=== PATIENT | male | born 2000 | race Caucasian/White ===

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

== ENCOUNTER → 2020-04-09 | Outpatient (CLI) | payer OTHER ==
[2020-04-09 17:51] LABS: HEMATOCRIT 40.1 % (42.0-52.0); HEMOGLOBIN 14.2 g/dl (13.5-17.5); MEAN CORPUSCULAR HEMOGLOBIN 30.1 pg (27.0-33.0); MEAN CORPUSCULAR HGB CONC 35.4 g/dl (32.0-36.5); PLATELET COUNT, AUTOMATED 345 10^3/uL (150-450); RED BLOOD COUNT 4.72 10^6/uL (4.30-6.10); WHITE BLOOD COUNT 9.8 10^3/uL (4.0-10.0)
[2020-04-09 18:09] LABS: HEMOGLOBIN A1c 4.7 %
[2020-04-09 18:26] LABS: ALBUMIN 4.1 GM/DL (3.2-5.2); ALT/SGPT 23 U/L (12-78); BILIRUBIN,TOTAL 0.4 MG/DL (0.2-1.0); BLOOD UREA NITROGEN 12 MG/DL (7-18); CALCIUM LEVEL 9.3 MG/DL (8.5-10.1); CARBON DIOXIDE LEVEL 26 MEQ/L (21-32); CHLORIDE LEVEL 104 MEQ/L (98-107); CHOLESTEROL LEVEL 191 MG/DL (<200); CHOLESTEROL RISK RATIO 6.161 (<5); CREATININE FOR GFR 0.84 MG/DL (0.70-1.30); FREE THYROXINE INDEX 3.1 % (1.4-3.8); GLUCOSE, FASTING 103 MG/DL (70-100); HDL CHOLESTEROL 31 MG/DL (>40); NON-HDL-C 160 MG/DL; POTASSIUM SERUM 4.1 MEQ/L (3.5-5.1); SODIUM LEVEL 138 MEQ/L (136-145); T UPTAKE 31 % (33-40); THYROID STIMULATING HORMONE 0.924 uIU/ML (0.463-3.98); THYROXINE (T4) 9.9 UG/DL (6.0-11.6); TOTAL 25(OH) VITAMIN D 7.2 NG/ML (30.0-100.0); TOTAL PROTEIN 7.5 GM/DL (6.4-8.2); TRIGLYCERIDES LEVEL 464 MG/DL (<150)
== END ==
LOC: M LAB 16:40
PROVIDERS: ATTEND Psychiatry & Neurology Child & Adolescent Psychiatry
DX: F31.9 Bipolar disorder, unspecified (principal)

== ENCOUNTER → 2020-12-06 | Outpatient (CLI) | payer OTHER ==
[2020-12-06 18:19] LABS: BLOOD UREA NITROGEN 13 MG/DL (7-18); CALCIUM LEVEL 9.3 MG/DL (8.5-10.1); CARBON DIOXIDE LEVEL 32 MEQ/L (21-32); CHLORIDE LEVEL 105 MEQ/L (98-107); CHOLESTEROL LEVEL 243 MG/DL (<200); CHOLESTEROL RISK RATIO 8.379 (<5); GLUCOSE, FASTING 90 MG/DL (70-100); HDL CHOLESTEROL 29 MG/DL (>40); NON-HDL-C 214 MG/DL; POTASSIUM SERUM 3.9 MEQ/L (3.5-5.1); SODIUM LEVEL 140 MEQ/L (136-145); TRIGLYCERIDES LEVEL 827 MG/DL (<150)
== END ==
LOC: M LAB 16:30
PROVIDERS: ATTEND Family Medicine
DX: F64.9 Gender identity disorder, unspecified (principal)

== ENCOUNTER 2022-06-21 19:20 | Emergency (ER) | payer OTHER ==
[~2022-06-21] VITALS: Ht 175.3 cm; Wt 134.1 kg
[~2022-06-21 19:20] MED LIST changes: +ALBU2.5V10 INH; -ALBU83IN INH
[2022-06-21 19:21] VITALS: BP 133/84
[2022-06-21] MEDS ORDERED: FINA5TAB2 PO (19:32)
[2022-06-21] MEDS ORDERED: LAMO100T3 PO (19:32)
[2022-06-21] MEDS ORDERED: ESCI5SOL3 PO (19:32)
[2022-06-21] MEDS ORDERED: ESTR1TAB PO (19:32)
[2022-06-21] MEDS ORDERED: ANUSOL HC CREAM 30GM TOP STA (20:48)
[2022-06-21] MEDS ORDERED: ANUS2.5C2 TOP (20:59)
== END 2022-06-21 21:06 | disposition home or self-care (01) ==
LOC: M ED 19:20
DX: K64.4 Residual hemorrhoidal skin tags (principal)

== ENCOUNTER 2023-12-24 00:38 | Emergency (ER) | payer OTHER ==
[~2023-12-24] VITALS: Ht 175.3 cm; Wt 133.6 kg
[~2023-12-24 00:38] MED LIST changes: +ANUS2.5C2 TOP; +ESCI5SOL3 PO; +ESTR1TAB PO; +FINA5TAB2 PO; +LAMO100T3 PO
[2023-12-24] MEDS ORDERED: ALBU6.7H6 INH (00:45)
[2023-12-24] MEDS: predniSONE 20 MG TAB PO ONE (01:53)
[2023-12-24] MEDS: IPRATROPIUM 0.5MG/ALBUTEROL 2.5MG INH SOL UD 3ML (DUONEB) NEB SCH (01:56)
[2023-12-24 02:45] VITALS: BP 131/74; TEMP 98; O2SAT 99
[2023-12-24] MEDS ORDERED: PRED20TA PO (02:53)
== END 2023-12-24 03:04 | disposition home or self-care (01) ==
LOC: M ED 00:38
DX: J45.901 Unspecified asthma with (acute) exacerbation (principal); Z79.899 Other long term (current) drug therapy
CPT/HCPCS: 71045; 87486; 87581; 87633; 87798; 94640; 99284; J7512